=== PATIENT | male | born 1945 | race Caucasian/White ===

== ENCOUNTER 2017-12-01 06:15 | Day surgery (SDC) | payer MEDICARE, BC ==
[~2017-12-01 06:15] MED LIST: Lactated Ringers 1,000 ML IV SCH; Sodium Chloride 0.9% 5 ML Syringe FLUSH PRN
[2017-12-01] MEDS: Cyclopentolate 1% Opth Soln 2 ML Bottle EYELF SCH ×3 (06:30→06:55)
[2017-12-01] MEDS: Phenylephrine 10% Ophth Soln 5 ML Bot EYELF SCH ×3 (06:38→07:01)
[2017-12-01] MEDS ORDERED: Gatifloxacin 0.5% Ophth Soln 2.5 ML Bot EYELF SCH (07:00)
[2017-12-01] MEDS ORDERED: Balanced Salt Solution Ophth Irrig 15 ML Bottle EYELF ONE (08:40)
[2017-12-01] MEDS ORDERED: Balanced Salt Solution Plus Ophth Irrig 500 ML Bottle IOCULAR ONE (08:40)
[2017-12-01] MEDS ORDERED: Water For Irrigation,Sterile 1,500 ML Container IRR ONE (08:40)
[2017-12-01] MEDS ORDERED: Carbachol 0.01% Intraocular 1.5 ML Vial EYELF ONE (08:41)
[2017-12-01] MEDS ORDERED: EPINEPHrine 1 MG/ML SDV ONE (08:41)
[2017-12-01] MEDS ORDERED: Hyaluronate Sodium 1% 0.85 ML Syringe IOCULAR ONE (08:42)
[2017-12-01] MEDS ORDERED: Lidocaine 1% 10 ML MDV INJECT ONE (08:42)
[2017-12-01] MEDS ORDERED: Lidocaine 2% with EPINEPHrine 1:100,000 20 ML MDV INJECT ONE (08:42)
[2017-12-01] MEDS ORDERED: Dexamethasone/Neomycin/Polymyxin B Ophth Oint 3.5 GM Tube EYELF ONE (08:42)
[2017-12-01] MEDS ORDERED: Tetracaine HCl/PF 0.5% 4 ML Bottle EYEBOTH ONE (08:43)
[2017-12-01 09:28] VITALS: BP 141/60
--- NOTE | 2017-12-01 15:48 | OR ---
DATE OF SURGERY: 12/01/2017 SURGEON: Blair Mandujano MD PREOPERATIVE DIAGNOSIS: Cataract, left eye. POSTOPERATIVE DIAGNOSIS: Cataract, left eye. OPERATION PERFORMED: Phacoemulsification with posterior chamber lens insertion, left eye. HISTORY: The patient presents at this time with increasing amount of difficulty seeing to drive at night. Vision for the left eye is 20/60 -2. The left lens has a 3+ nuclear sclerosis, 2+ cortical change, and 2+ posterior subcapsular change. 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 FINDINGS: The patient was taken to the operating room where appropriate anesthesia, sedation and monitoring were provided. A retrobulbar block was given on the left side. The eye was massaged and was found to be appropriately soft. The eye and eyelids were then prepped and draped in the usual sterile manner. A lid speculum was placed. A micro sharp blade was used to enter the anterior chamber inside the limbus inferior-temporally. Xylocaine was irrigated into the eye at this site. Healon was irrigated into the eye through this site. Then using a 2.85 mm corneal blade an entry was made into the anterior chamber just inside the limbus temporally. Healon was again irrigated into the eye. Then using a cystitome, the anterior capsulorrhexis was created. The lens nucleus was hydrodissected using a 27 gauge cannula and balanced salt solution. The phacoemulsification unit was introduced through the temporal site and the Sherman spatula through the inferior temporal site. In so doing, the lens nucleus was phacoemulsified. The cortical fragments of the lens were removed using the irrigation aspiration unit. The posterior capsule was polished. Healon was irrigated into the eye. The posterior chamber lens was inserted and rotated into position inside the capsular bag. The Healon was irrigated out of the eye. Miostat was irrigated into the eye and the pupil rounded nicely. A single interrupted 10-0 Nylon suture was placed through the temporal corneal incision site. Balanced salt solution was irrigated into the eye. The wound was tested and found to be tight. Maxitrol ointment was placed into the patient's left eye. The eyelids were closed and an eye patch and nevarez shield were placed. The patient left the operating room in good condition. /[id number]/MODL
== END 2017-12-01 09:20 | disposition home or self-care (01) ==
LOC: KA.SDS 06:15
PROVIDERS: ATTEND Ophthalmology
DX: H25.812 Combined forms of age-related cataract, left eye (principal); N18.3 Chronic kidney disease, stage 3 (moderate); I12.9 Hypertensive chronic kidney disease with stage 1 through stage 4 chronic kidney disease, or unspecified chronic kidney disease; F32.9 Major depressive disorder, single episode, unspecified; Z95.0 Presence of cardiac pacemaker; Z79.82 Long term (current) use of aspirin; Z79.899 Other long term (current) drug therapy
CPT/HCPCS: 00142; 66984; A9270; C1780; J0171; J7120

== ENCOUNTER 2019-03-31 10:54 | Emergency (ER) | payer MEDICARE, BC ==
[2019-03-31] MEDS ORDERED: Ondansetron 4 MG/2 ML SDV IVPUSH ONE ×2 (11:08→11:57)
[2019-03-31] MEDS ORDERED: Sodium Chloride 0.9% 1,000 ML IV ONE ×2 (11:08→12:28)
[2019-03-31 11:13] VITALS: BP 150/55; PULSE 71
[2019-03-31] MEDS ORDERED: Sodium Chloride 0.9% 10 ML Syringe FLUSH PRN (11:19)
[2019-03-31 11:33] LABS: ANION GAP 17.6 mmol/L (5-15); CHLORIDE,CL 105 mmol/L (98-115); SODIUM,NA 143 mmol/L (136-145)
--- NOTE | 2019-03-31 11:50 | EDM.PDOC ---
ED HPI GENERAL MEDICAL PROBLEM - General Chief Complaint: General Stated Complaint: SICK/VOMITTING Time Seen by Provider: 03/31/19 11:29 Source of Information: Reports: Patient, Significant Other History Limitations: Reports: No Limitations - History of Present Illness INITIAL COMMENTS - FREE TEXT/NARRATIVE: Patient presents with general weakness and vomiting that started around 9:15 this morning quite abruptly. He had just eaten a piece of toast and cup of coffee and started vomiting. He called his at work so she came home and brought him to ER. He denies any chest pain or tightness but has pain in left arm and shoulder all the time; needs a shoulder replacement. He wondered if he could be having a heart attack. 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 - Related Data Allergies Allergy/AdvReac Type Severity Reaction Status Date / Time No Known Drug Allergies Allergy Cannot Verified 03/31/19 11:12 Remember Home Meds: Home Meds Folic Acid/Mv,Fe,Min [Centrum Multivitamin] 1 each PO DAILY 01/21/15 [History] Latanoprost 1 drop EYELF BEDTIME 01/21/15 [History] Simvastatin 10 mg PO BEDTIME 01/21/15 [History] Metoprolol Succinate [Toprol XL] 25 mg PO DAILY 08/06/15 [History] Sennosides [Senna] 17.2 mg PO BEDTIME PRN 08/06/15 [History] amLODIPine Besylate [Norvasc] 7.5 mg PO DAILY 11/27/17 [History] Fish Oil/[place]-3 Fatty Acids [Fish Oil 1,000 MG] 1,000 mg PO DAILY 02/22/18 [ History] Escitalopram Oxalate [Lexapro] 20 mg PO DAILY 03/31/19 [History] Past Medical History - Past Health History Medical/Surgical History: Denies Medical/Surgical History HEENT History: Reports: Cataract, Impaired Vision Other HEENT History: ONS 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 Genitourinary History: Reports: Chronic Renal Insuffiency, Prostate Disorder Other Genitourinary History: CKD STAGE 3 Musculoskeletal History: Reports: Arthritis Other Musculoskeletal History: Bursitis. Bilateral shoulder pain with cortizone injections. Psychiatric History: Reports: Anxiety, Depression, Mood Swings Oncologic (Cancer) History: Reports: Prostate - Past Surgical History HEENT Surgical History: Reports: Cataract Surgery, Tonsillectomy Cardiovascular Surgical History: Reports: None GI Surgical History: Reports: Colonoscopy, EGD, Polypectomy Male Surgical History: Reports: Prostatectomy Musculoskeletal Surgical History: Reports: Arthroscopic Knee Oncologic Surgical History: Reports: None Dermatological Surgical History: Reports: None Social & Family History - Family History Family Medical History: Noncontributory Respiratory: Reports: Other (See Below) Other Respiratory Family Hisory: Emphysema. Hematologic: Reports: Other (See Below) Other Hematologic Family History: Septicemia. Oncologic: Reports: Brain - Caffeine Use Caffeine Use: Reports: Coffee ED ROS GENERAL - Review of Systems Review Of Systems: See Below Constitutional: Reports: Chills, Malaise, Weakness, Fatigue. Denies: Fever, Diaphoresis HEENT: Denies: Ear Pain, Throat Pain, Vision Change Respiratory: Denies: Shortness of Breath, Cough Cardiovascular: Denies: Chest Pain, Lightheadedness Endocrine: Reports: Fatigue GI/Abdominal: Reports: Vomiting. Denies: Abdominal Pain, Diarrhea Musculoskeletal: Denies: Neck Pain, Shoulder Pain Skin: Denies: Cyanosis, Jaundice, Mottled, Pallor, Diaphoresis Neurological: Denies: Confusion, Dizziness, Headache, Seizure, Syncope, Trouble Speaking, Difficulty Walking (except feels like he could faint) Psychiatric: Denies: Agitation, Anxiety, Confusion ED EXAM, GENERAL - Physical Exam Exam: See Below Exam Limited By: No Limitations General Appearance: Alert, WD/WN, No Apparent Distress Eye Exam: Bilateral Eye: EOMI, Normal Inspection, PERRL Ears: Normal External Exam, Hearing Grossly Normal Nose: Normal Inspection, No Blood Throat/Mouth: Normal Inspection, Normal Lips, Normal Voice, No Airway Compromise Head: Atraumatic, Normocephalic Neck: Normal Inspection, Supple, Non-Tender, Full Range of Motion. No: Carotid Bruit Respiratory/Chest: No Respiratory Distress, Lungs Clear, Normal Breath Sounds, No Accessory Muscle Use Cardiovascular: Normal Peripheral Pulses, Regular Rate, Rhythm, No Edema, No Gallop, No JVD, No Murmur Peripheral Pulses: 2+: Carotid (L), Carotid (R), Radial (L), Radial (R), Posterior Tibial (L), Posterior Tibial (R) GI/Abdominal: Soft, Non-Tender, No Organomegaly, No Distention Back Exam: Normal Inspection, Full Range of Motion. No: CVA Tenderness (L), CVA Tenderness (R) Extremities: Normal Inspection, Normal Range of Motion, Non-Tender, No Pedal Edema Neurological: Alert, Oriented, Normal Cognition, No Motor/Sensory Deficits Psychiatric: Normal Affect, Normal Mood Skin Exam: Warm, Dry, Intact, Normal Color, No Rash Course - Vital Signs Last Recorded V/S: Last Vital Signs Temp 96.8 F 03/31/19 11:09 Pulse 71 03/31/19 11:09 Resp 16 03/31/19 11:09 BP 150/55 H 03/31/19 11:09 Pulse Ox 96 03/31/19 11:09 - Orders/Labs/Meds Orders: Active Orders 24 hr Category Date Time Status EKG Documentation Completion [RC] ASDIRECTED Care 03/31/19 11:51 Active Peripheral IV Care [RC] . DIRECTED Care 03/31/19 11:19 Active Sodium Chloride 0.9% [Saline Flush] Med 03/31/19 11:19 Active 10 ml FLUSH Q8HR PRN Peripheral IV Insertion Adult [OM.PC] Routine Oth 03/31/19 11:19 Ordered EKG 12 Lead [EK] Routine Ther 03/31/19 11:51 Ordered Medication Orders Sodium Chloride (Saline Flush) 10 ml FLUSH Q8HR PRN PRN Reason: keep vein open Last Admin: 03/31/19 11:00 Dose: 10 ml Labs: Laboratory Tests 03/31/19 03/31/19 03/31/19 Range/Units 11:00 11:00 11:00 WBC 7.81 (5.00-10.00) 10^3/uL RBC 4.72 (4.50-6.00) 10^6/uL Hgb 14.6 (13.0-17.0) g/dL Hct 44.0 (40.0-52.0) % MCV 93.2 H D (82.0-92.0) fL MCH 30.9 (27.0-31.0) pg MCHC 33.2 (32.0-36.0) g/dL RDW 14.4 (11.5-14.5) % Plt Count 289 (150-400) 10^3/uL MPV 8.8 (7.4-10.4) fL Immature Gran % (Auto) 1.0 (0.0-5.0) % Neut % (Auto) 50.5 (50.0-70.0) % Lymph % (Auto) 36.1 (20.0-40.0) % [place] % (Auto) 8.6 H (2.0-8.0) % Eos % (Auto) 3.5 H (1.0-3.0) % Baso % (Auto) 0.3 (0.0-1.0) % Immature Gran # (Auto) 0.08 (0.00-0.50) 10^3/uL Neut # (Auto) 3.95 (2.50-7.00) 10^3/uL Lymph # (Auto) 2.82 (1.00-4.00) 10^3/uL [place] # (Auto) 0.67 (0.10-0.80) 10^3/uL Eos # (Auto) 0.27 (0.10-0.30) 10^3/uL Baso # (Auto) 0.02 (0.00-0.10) 10^3/uL Sodium 143 (136-145) mmol/L Potassium 4.0 (3.3-5.3) mmol/L Chloride 105 (98-115) mmol/L Carbon Dioxide 24.4 (21.0-32.0) mmol/L Anion Gap 17.6 H (5-15) mmol/L BUN 28 H (6-25) mg/dL Creatinine 1.17 (0.51-1.17) mg/dL Est Cr Clr Drug Dosing 51.00 mL/min Estimated GFR (MDRD) > 60 mL/min Glucose 102 H (75 - 99) mg/dL Calcium 8.8 (8.7-10.3) mg/dL Total Bilirubin 0.3 (0.2-1.0) mg/dL AST 19 (15-37) U/L ALT 25 (12-78) U/L Alkaline Phosphatase 106 (46-116) IU/L Troponin I 0.07 (0.00-0.070) ng/mL Total Protein 7.6 (6.4-8.2) g/dL Albumin 3.69 (3.00-4.80) g/dL 03/31/19 Range/Units 14:10 WBC (5.00-10.00) 10^3/uL RBC (4.50-6.00) 10^6/uL Hgb (13.0-17.0) g/dL Hct (40.0-52.0) % MCV (82.0-92.0) fL MCH (27.0-31.0) pg MCHC (32.0-36.0) g/dL RDW (11.5-14.5) % Plt Count (150-400) 10^3/uL MPV (7.4-10.4) fL Immature Gran % (Auto) (0.0-5.0) % Neut % (Auto) (50.0-70.0) % Lymph % (Auto) (20.0-40.0) % [place] % (Auto) (2.0-8.0) % Eos % (Auto) (1.0-3.0) % Baso % (Auto) (0.0-1.0) % Immature Gran # (Auto) (0.00-0.50) 10^3/uL Neut # (Auto) (2.50-7.00) 10^3/uL Lymph # (Auto) (1.00-4.00) 10^3/uL [place] # (Auto) (0.10-0.80) 10^3/uL Eos # (Auto) (0.10-0.30) 10^3/uL Baso # (Auto) (0.00-0.10) 10^3/uL Sodium (136-145) mmol/L Potassium (3.3-5.3) mmol/L Chloride (98-115) mmol/L Carbon Dioxide (21.0-32.0) mmol/L Anion Gap (5-15) mmol/L BUN (6-25) mg/dL Creatinine (0.51-1.17) mg/dL Est Cr Clr Drug Dosing mL/min Estimated GFR (MDRD) mL/min Glucose (75 - 99) mg/dL Calcium (8.7-10.3) mg/dL Total Bilirubin (0.2-1.0) mg/dL AST (15-37) U/L ALT (12-78) U/L Alkaline Phosphatase (46-116) IU/L Troponin I 0.06 (0.00-0.070) ng/mL Total Protein (6.4-8.2) g/dL Albumin (3.00-4.80) g/dL Meds: Medications Generic Name Dose Route Start Last Admin Trade Name Tiff PRN Reason Stop Dose Admin Sodium Chloride 10 ml 03/31/19 11:19 03/31/19 11:00 Saline Flush FLUSH 10 ml Q8HR PRN Administration keep vein open Discontinued Medications Generic Name Dose Route Start Last Admin Trade Name Tiff PRN Reason Stop Dose Admin Sodium Chloride 1,000 mls @ 999 mls/hr 03/31/19 11:08 03/31/19 11:15 Normal Saline IV 03/31/19 12:08 999 mls/hr .BOLUS ONE Administration Sodium Chloride 1,000 mls @ 999 mls/hr 03/31/19 12:28 03/31/19 12:48 Normal Saline IV 03/31/19 13:28 999 mls/hr .BOLUS ONE Administration Ondansetron HCl 4 mg 03/31/19 11:08 03/31/19 11:16 Zofran IVPUSH 03/31/19 11:09 4 mg ONETIME ONE Administration Ondansetron HCl 4 mg 03/31/19 11:57 03/31/19 12:02 Zofran IVPUSH 03/31/19 11:58 4 mg ONETIME ONE Administration - Re-Assessments/Exams Free Text/Narrative Re-Assessment/Exam: 03/31/19 12:29 Gave a second dose of Zofran as he is still having nausea. One litre of fluids is in and will start another. Trop is 0.07 and EKG shows a LBBB with paced rhythm at 66 BPM. He has no pain in chest. Will run fluids and recheck troponin at 3 hour interval. 03/31/19 14:36 Patient is feeling much better after two liters of saline and two doses of Zofran. We are waiting on second troponin. 03/31/19 15:02 Trop is 0.06; patient is sitting up and feeling much better. He would like Zofran to take at home if needed. Discharged to home in stable condition. Departure - Departure Time of Disposition: 15:02 Disposition: Home, Self-Care 01 Condition: Good Clinical Impression: General weakness Nausea & vomiting Qualifiers: Vomiting type: unspecified Vomiting Intractability: unspecified Qualified Code( s): R11.2 - Nausea with vomiting, unspecified - Discharge Information Instructions: Nausea and Vomiting, Adult, [id number] Referrals: Aylin Moon MD [Primary Care Provider] - Forms: ED Department Discharge Additional Instructions: 1. Drink 8 cups of water daily. 2. Take the Zofran as directed when needed for nausea. 3. Follow up with your PCP if not resolving in 3-4 days or sooner if worsening. 4. Return to ER as needed for emergent care. Sepsis Event Note - Evaluation Sepsis Screening Result: No Definite Risk - Focused Exam Vital Signs: Vital Signs Temp Pulse Resp BP Pulse Ox 03/31/19 11:09 96.8 F 71 16 150/55 H 96 Date Exam was Performed: 03/31/19 Time Exam was Performed: 15:05 - My Orders Last 24 Hours: My Active Orders 03/31/19 11:19 Peripheral IV Care [RC] . DIRECTED Sodium Chloride 0.9% [Saline Flush] 10 ml FLUSH Q8HR PRN Peripheral IV Insertion Adult [OM.PC] Routine 03/31/19 11:51 EKG Documentation Completion [RC] ASDIRECTED EKG 12 Lead [EK] Routine - Assessment/Plan Last 24 Hours: My Active Orders 03/31/19 11:19 Peripheral IV Care [RC] . DIRECTED Sodium Chloride 0.9% [Saline Flush] 10 ml FLUSH Q8HR PRN Peripheral IV Insertion Adult [OM.PC] Routine 03/31/19 11:51 EKG Documentation Completion [RC] ASDIRECTED EKG 12 Lead [EK] Routine
== END 2019-03-31 15:10 | disposition home or self-care (01) ==
LOC: KA.ED 10:54
DX: R53.1 Weakness (principal); R11.2 Nausea with vomiting, unspecified; E78.00 Pure hypercholesterolemia, unspecified; I12.9 Hypertensive chronic kidney disease with stage 1 through stage 4 chronic kidney disease, or unspecified chronic kidney disease; N18.3 Chronic kidney disease, stage 3 (moderate); F41.9 Anxiety disorder, unspecified; F32.9 Major depressive disorder, single episode, unspecified; H26.9 Unspecified cataract; Z79.899 Other long term (current) drug therapy
CPT/HCPCS: 36415; 80053; 84484; 85025; 87804; 93005; 96361; 96374; 96376; 99284; 99285-25; J2405; J7030

== ENCOUNTER 2020-04-16 08:04 | Day surgery (SDC) | payer MEDICARE, BC ==
[~2020-04-16 08:04] MED LIST changes: -Lactated Ringers 1,000 ML IV SCH; +Sodium Chloride 0.9% 10 ML Syringe FLUSH PRN; -Sodium Chloride 0.9% 5 ML Syringe FLUSH PRN
[2020-04-16] MEDS ORDERED: Ondansetron 4 MG/2 ML SDV IV ONE (08:05)
[2020-04-16] MEDS ORDERED: Propofol 200 MG/20 ML SDV IV ONE (08:05)
[2020-04-16] MEDS: Lactated Ringers 1,000 ML IV SCH (08:42)
[2020-04-16] MEDS ORDERED: Propofol 200 MG/20 ML SDV ONE ×2 (09:47→10:38)
[2020-04-16] MEDS ORDERED: Lactated Ringers 1,000 ML ONE (10:34)
[2020-04-16 11:24] VITALS: BP 138/74; PULSE 60
--- NOTE | 2020-04-16 11:25 | PCM.PRNOTE ---
- Free Text/Narrative Note: PROCEDURE PERFORMED: Colonoscopy with polypectomy PRE-PROCEDURE DIAGNOSIS/INDICATION FOR PROCEDURE: History of tubular adenoma (most recent colonoscopy 11/02/14 with one hyperplastic polyp) CONSENT: Informed consent was obtained prior to the procedure after discussion of the risks (including pain, bleeding, infection, perforation, missed polyps, inability to completely remove polyps or complete procedure necessitating repeat colonoscopy, adverse reaction to anesthesia, cardiovascular event), benefits and alternatives and expected outcomes. The patient expressed understanding and wished to proceed. Verbal consent given and consent form signed. PROCEDURAL PAUSE: Completed SEDATION: Per anesthesia DESCRIPTION OF PROCEDURE: Patient was placed in the left lateral decubitus position. After adequate sedation and anesthetic was administered, a rectal exam was performed revealing healed external hemorrhoid tags. A lubricated Olympus Video Colonoscope was inserted into the rectum and air insufflation was performed. The colonoscope was advanced through the rectum, sigmoid, descending, transverse, and ascending colon without difficulties. The cecum was reached and the ileocecal valve as well as the appendiceal orifice were identified and pictorially documented. After adequate visualization of the cecum, the scope was withdrawn, giving 360- degree views of the colonic mucosa and retroflexion was performed in the rectum with the following findings noted: Ileocecal valve: Normal Cecum: Normal Ascending colon: One <5mm polyp at 110cm removed with cold forceps. Hepatic flexure: Normal Transverse colon: Three around 5mm polyps at 100cm removed with hot snare. One 5mm polyp at 90cm removed with hot snare. Splenic flexure: Normal Descending colon: Normal. Sigmoid colon: Scattered small diverticuli. Three 5mm polyps at 60cm removed with hot snare. Three 5mm polyps at 40cm removed with hot snare. Rectum: Normal All polyp removal sites were noted to have complete polyp removal and subsequent hemostasis noted. The scope was straightened, air suction performed, and the scope withdrawn without complication. Preparation adequacy [place] Bowel Prep score 7/9. IMPRESSION: Colonoscopy performed revealing: - 11 polyps, pathology now pending - Scattered sigmoid diverticulosis - External hemorrhoid tags PLAN: Will contact the patient when pathology results received with recommendation for repeat colonoscopy. Encourage increased fiber diet and bowel regimen to ensure avoidance of constipation.
== END 2020-04-16 12:10 | disposition home or self-care (01) ==
LOC: KA.SDS 08:04
PROVIDERS: ATTEND Family Medicine
DX: Z12.11 Encounter for screening for malignant neoplasm of colon (principal); K57.30 Diverticulosis of large intestine without perforation or abscess without bleeding; K64.4 Residual hemorrhoidal skin tags; G47.33 Obstructive sleep apnea (adult) (pediatric); I49.5 Sick sinus syndrome; I10 Essential (primary) hypertension; E78.00 Pure hypercholesterolemia, unspecified; E66.3 Overweight; Z95.0 Presence of cardiac pacemaker; Z85.46 Personal history of malignant neoplasm of prostate; Z68.29 Body mass index [BMI] 29.0-29.9, adult
CPT/HCPCS: 00812; 88305; J2405; J2704; J7120

== ENCOUNTER 2023-02-23 10:38 | Inpatient (IN) | payer MEDICARE, BC ==
[2023-02-23] MEDS ORDERED: Polyethylene Glycol 3350 Powder 17 GM Packet PO PRN (16:40)
[2023-02-23] MEDS: oxyCODONE 5 MG Tab PO PRN ×2 (17:05→23:39)
[2023-02-23] MEDS: Latanoprost 0.005% Ophth Soln 2.5 ML Bottle EYELF SCH (20:48)
[2023-02-23] MEDS: Simvastatin 10 MG Tab PO SCH (20:50)
[2023-02-23] MEDS: Sennosides/Docusate Sodium 50-8.6 MG Tab PO SCH (20:50)
[2023-02-23] MEDS: Acetaminophen 325 MG Tab PO PRN (20:51)
[2023-02-23] MEDS: Apixaban 5 MG Tab PO SCH (20:51)
[2023-02-24] MEDS: oxyCODONE 5 MG Tab PO PRN ×2 (05:25→19:47)
[2023-02-24 07:19] LABS: BASOPHILS ABSOLUTE AUTO 0.01 10^3/uL (0.00-0.10); BASOPHILS PERCENT AUTO 0.2 % (0.0-1.0); EOSINOPHILS PERCENT AUTO 1.9 % (1.0-3.0); HEMATOCRIT 30.8 % (40.0-52.0); HEMOGLOBIN 9.7 g/dL (13.0-17.0); IMMATURE GRAN ABSOLUTE AUTO 0.01 10^3/uL (0.00-0.50); IMMATURE GRAN PERCENT AUTO 0.2 % (0.0-5.0); LYMPHOCYTES ABSOLUTE AUTO 1.81 10^3/uL (1.00-4.00); LYMPHOCYTES PERCENT AUTO 34.4 % (20.0-40.0); MEAN CORPUSCULAR HGB CONC 31.5 g/dL (32.0-36.0); MEAN CORPUSCULAR VOLUME 95.4 fL (82.0-92.0); MEAN PLATELET VOLUME 9.1 fL (7.4-10.4); MONOCYTES ABSOLUTE AUTO 0.54 10^3/uL (0.10-0.80); MONOCYTES PERCENT AUTO 10.3 % (2.0-8.0); NEUTROPHILS ABSOLUTE AUTO 2.79 10^3/uL (2.50-7.00); PLATELET COUNT,PLT 231 10^3/uL (150-400); RED BLOOD CELL COUNT 3.23 10^6/uL (4.50-6.00); RED CELL DISTRIBUTION WIDTH 15.9 % (11.5-14.5); WHITE BLOOD CELL COUNT,WBC 5.26 10^3/uL (5.00-10.00)
[2023-02-24 07:37] LABS: ALBUMIN 2.31 g/dL (3.40-5.00); BILIRUBIN TOTAL 0.8 mg/dL (0.2-1.0); CARBON DIOXIDE,CO2 28.3 mmol/L (21.0-32.0); CREATININE 1.08 mg/dL (0.51-1.17); EST CRCL DRUG DOSING (CG) 52.7 mL/min; POTASSIUM,K 4.3 mmol/L (3.5-5.1); PROTEIN TOTAL,TP 5.4 g/dL (6.4-8.2)
[2023-02-24] MEDS ORDERED: Lisinopril 10 MG Tab PO SCH (09:00)
[2023-02-24] MEDS: DULoxetine 30 MG Cap PO SCH (09:42)
[2023-02-24] MEDS: Apixaban 5 MG Tab PO SCH ×2 (09:43→21:09)
[2023-02-24] MEDS: Metoprolol Succinate 25 MG Tab.ER PO SCH (09:43)
[2023-02-24] MEDS ORDERED: Sodium Chloride 0.9% 1,000 ML IV ONE (13:04)
[2023-02-24] MEDS ORDERED: Sodium Chloride 0.9% 1,000 ML IV SCH (13:15)
[2023-02-24] MEDS: Sennosides/Docusate Sodium 50-8.6 MG Tab PO SCH (21:08)
[2023-02-24] MEDS: Acetaminophen 325 MG Tab PO PRN (21:08)
[2023-02-24] MEDS: Simvastatin 10 MG Tab PO SCH (21:08)
[2023-02-24] MEDS: Latanoprost 0.005% Ophth Soln 2.5 ML Bottle EYELF SCH (21:09)
[2023-02-25] MEDS: oxyCODONE 5 MG Tab PO PRN (06:12)
[2023-02-25] MEDS: Apixaban 5 MG Tab PO SCH ×2 (08:50→20:37)
[2023-02-25] MEDS: DULoxetine 30 MG Cap PO SCH (08:50)
[2023-02-25] MEDS: Metoprolol Succinate 25 MG Tab.ER PO SCH (08:50)
[2023-02-25] MEDS: Acetaminophen 325 MG Tab PO PRN ×2 (14:30→20:37)
[2023-02-25] MEDS: Latanoprost 0.005% Ophth Soln 2.5 ML Bottle EYELF SCH (20:37)
[2023-02-25] MEDS: Simvastatin 10 MG Tab PO SCH (20:37)
[2023-02-25] MEDS: Sennosides/Docusate Sodium 50-8.6 MG Tab PO SCH (20:37)
[2023-02-26] MEDS: oxyCODONE 5 MG Tab PO PRN ×2 (04:57→20:59)
[2023-02-26] MEDS: Apixaban 5 MG Tab PO SCH ×2 (09:06→20:58)
[2023-02-26] MEDS: DULoxetine 30 MG Cap PO SCH (09:06)
[2023-02-26] MEDS: Metoprolol Succinate 25 MG Tab.ER PO SCH (09:06)
[2023-02-26] MEDS: Acetaminophen 325 MG Tab PO PRN ×2 (09:25→13:31)
[2023-02-26] MEDS: Latanoprost 0.005% Ophth Soln 2.5 ML Bottle EYELF SCH (20:32)
[2023-02-26] MEDS: Simvastatin 10 MG Tab PO SCH (20:59)
[2023-02-26] MEDS: Sennosides/Docusate Sodium 50-8.6 MG Tab PO SCH (21:00)
[2023-02-27] MEDS: oxyCODONE 5 MG Tab PO PRN ×2 (04:59→10:19)
[2023-02-27 07:23] LABS: BASOPHILS ABSOLUTE AUTO 0.01 10^3/uL (0.00-0.10); BASOPHILS PERCENT AUTO 0.2 % (0.0-1.0); EOSINOPHILS ABSOLUTE AUTO 0.11 10^3/uL (0.10-0.30); HEMATOCRIT 31.1 % (40.0-52.0); HEMOGLOBIN 10.3 g/dL (13.0-17.0); IMMATURE GRAN ABSOLUTE AUTO 0.01 10^3/uL (0.00-0.50); IMMATURE GRAN PERCENT AUTO 0.2 % (0.0-5.0); LYMPHOCYTES ABSOLUTE AUTO 1.72 10^3/uL (1.00-4.00); LYMPHOCYTES PERCENT AUTO 31.2 % (20.0-40.0); MEAN CORPUSCULAR HEMOGLOBIN 30.7 pg (27.0-31.0); MEAN CORPUSCULAR HGB CONC 33.1 g/dL (32.0-36.0); MEAN CORPUSCULAR VOLUME 92.6 fL (82.0-92.0); MEAN PLATELET VOLUME 8.9 fL (7.4-10.4); MONOCYTES ABSOLUTE AUTO 0.67 10^3/uL (0.10-0.80); MONOCYTES PERCENT AUTO 12.1 % (2.0-8.0); NEUTROPHILS PERCENT AUTO 54.3 % (50.0-70.0); PLATELET COUNT,PLT 268 10^3/uL (150-400); RED BLOOD CELL COUNT 3.36 10^6/uL (4.50-6.00); RED CELL DISTRIBUTION WIDTH 15.7 % (11.5-14.5); WHITE BLOOD CELL COUNT,WBC 5.52 10^3/uL (5.00-10.00)
[2023-02-27 07:39] LABS: ANION GAP 10.2 mmol/L (5-15); CALCIUM 8.1 mg/dL (8.7-10.3); CARBON DIOXIDE,CO2 29.9 mmol/L (21.0-32.0); CREATININE 0.97 mg/dL (0.51-1.17); EST CRCL DRUG DOSING (CG) 58.68 mL/min; MAGNESIUM 1.8 mg/dL (1.8-2.4); POTASSIUM,K 4.1 mmol/L (3.5-5.1)
[2023-02-27] MEDS: DULoxetine 30 MG Cap PO SCH (08:29)
[2023-02-27] MEDS: Metoprolol Succinate 25 MG Tab.ER PO SCH (08:29)
[2023-02-27] MEDS: Apixaban 5 MG Tab PO SCH (08:29)
[2023-02-27 13:35] VITALS: BP 145/79; PULSE 69
== END 2023-02-27 13:25 | disposition home or self-care (01) | DRG 561 ==
LOC: KA.MS 16:20
PROVIDERS: ADMIT Internal Medicine; ATTEND Family Medicine
DX: Z47.1 Aftercare following joint replacement surgery (principal); I48.0 Paroxysmal atrial fibrillation; E78.00 Pure hypercholesterolemia, unspecified; G47.30 Sleep apnea, unspecified; I12.9 Hypertensive chronic kidney disease with stage 1 through stage 4 chronic kidney disease, or unspecified chronic kidney disease; N18.30 Chronic kidney disease, stage 3 unspecified; M19.90 Unspecified osteoarthritis, unspecified site; F41.9 Anxiety disorder, unspecified; F32.A Depression, unspecified; Z98.49 Cataract extraction status, unspecified eye; Z86.010 Personal history of colon polyps; Z79.01 Long term (current) use of anticoagulants; Z79.899 Other long term (current) drug therapy; Z95.0 Presence of cardiac pacemaker; Z90.89 Acquired absence of other organs; Z98.890 Other specified postprocedural states; Z87.891 Personal history of nicotine dependence
CPT/HCPCS: 36415; 80048; 80053; 83735; 83970; 85025; 97110-GP; 97161-GP; A9270-GY; Q3014